=== PATIENT | female | born 1965 | race Caucasian/White ===

== ENCOUNTER 2017-10-18 09:30 | Day surgery (SDC) | payer OTHER ==
[~2017-10-18] VITALS: Ht 157.5 cm; Wt 84.2 kg
[2017-10-18] VITALS (12 sets, daily range): BP systolic 111–147; BP diastolic 63–83; PULSE 79–98; RESP 15–22; Ht 157.5 cm; Wt 84.2 kg
[2017-10-18] MEDS ORDERED: CEFAZOLIN 2 GM/50 ML (PMX) 50 ML IVPB ONE (10:30)
[2017-10-18 10:57] LABS: BASOPHILS % 0.4 % (0.0-2.0); EOSINOPHILS # 0.1 10^3/ul (0.0-0.5); EOSINOPHILS % 1.5 % (0.0-7.0); HEMATOCRIT 39.7 % (37.0-47.0); HEMOGLOBIN 13.7 g/dl (12.0-16.0); LYMPHOCYTES # 1.6 10^3/ul (0.8-2.9); LYMPHOCYTES % 33.9 % (15.0-51.0); MEAN CORPUSCULAR HEMOGLOBIN 30.5 pg (29.0-33.0); MEAN CORPUSCULAR HGB CONC 34.5 g/dl (32.0-37.0); MEAN CORPUSCULAR VOLUME 88.4 fl (82.0-101.0); MEAN PLATELET VOLUME 12.6 fl (7.4-10.4); MONOCYTE # 0.4 10^3/ul (0.3-0.9); MONOCYTES % 7.3 % (0.0-11.0); NEUTROPHIL # 2.7 10^3/ul (1.6-7.5); NEUTROPHILS % 56.5 % (39.0-77.0); PLATELET COUNT 179 10^3/UL (140-415); RED BLOOD COUNT 4.49 10^6/ul (4.20-5.40); RED CELL DISTRIBUTION WIDTH 12.7 % (11.5-14.5); WHITE BLOOD COUNT 4.8 10^3/ul (4.8-10.8)
[2017-10-18 11:15] LABS: ALBUMIN 3.7 g/dl (3.3-4.9); ALBUMIN/GLOBULIN RATIO 1.23; BILIRUBIN,INDIRECT 0.6 mg/dl (0-1.1); BILIRUBIN,TOTAL 0.6 mg/dl (0.2-1.3); CALCIUM 9.3 mg/dl (8.4-10.2); CREATININE 0.68 mg/dl (0.44-1.00); POTASSIUM 4.2 mmol/L (3.5-5.1); TOTAL PROTEIN 6.7 g/dl (6.1-8.1)
[2017-10-18] MEDS ORDERED: LIDOCAINE 1% (MPF) 30 ML INJ ONE (11:38)
[2017-10-18] MEDS ORDERED: TRIAMCINOLONE ACET 40 MG/ML INJ ONE (11:39)
[2017-10-18 11:40] LABS: INR 1.01; PROTIME 13.4 Sec (11.9-14.9)
[2017-10-18 11:41] LABS: PARTIAL THROMBOPLASTIN TIME 31.5 Sec (25.0-35.0)
[2017-10-18] MEDS ORDERED: PROPOFOL 20 ML ONE ×2 (12:22→13:16)
[2017-10-18] MEDS ORDERED: ROCURONIUM 50 MG INJ ONE (12:22)
[2017-10-18] MEDS ORDERED: FENTAnyl 50 MCG/ML VIAL ONE (12:22)
[2017-10-18] MEDS ORDERED: MIDAZOLAM 1 MG/ML 2 ML INJ ONE (12:22)
[2017-10-18] MEDS ORDERED: LIDOCAINE 2% (SDV) 5 ML INJ ONE (12:22)
[2017-10-18] MEDS ORDERED: CEFAZOLIN 1 GM INJ ONE (12:28)
[2017-10-18] MEDS ORDERED: ONDANSETRON 4 MG INJ ONE (12:30)
[2017-10-18] MEDS ORDERED: DEXAMETHASONE 4 MG/ML 1 ML INJ ONE (12:30)
[2017-10-18] MEDS ORDERED: EPHEDrine SULFATE 50 MG/5 ML SYG ONE (12:54)
[2017-10-18] MEDS ORDERED: SUGAMMADEX SODIUM 200 MG/2 ML VIAL IV ONE (13:29)
[2017-10-18] MEDS ORDERED: OXYCODONE/ACETAMINOPHEN (5/325) TAB PO PRN (14:00)
[2017-10-18] MEDS ORDERED: ONDANSETRON 4 MG INJ IV PRN (14:00)
[2017-10-18] MEDS ORDERED: HYDROmorphONE (0.2 MG/ML) 10ML SYG IV PRN ×2 (14:00)
[2017-10-18] MEDS ORDERED: FENTAnyl 50 MCG/ML VIAL IV PRN (14:00)
--- NOTE | 2017-10-18 14:04 | OPR ---
Date/Time of Note Date/Time of Note DATE: 10/18/17 TIME: 13:43 Operative Report Procedure Date: Oct 18, 2017 Preoperative Diagnosis right knee meniscus tear Postoperative Diagnosis right knee osteoarthritis and degenerative meniscus tear on medial side Operation/Procedure Performed RIght knee arthroscopy with partial meniscectomy Surgeon see signature line Care Navigator NOne Anesthesia Type: general Tourniquet Time: 40 minutes, thigh, 250mmhg Estimated Blood Loss: minimal Transfusion none Specimen None Grafts/Implants none Complications none Pt Condition Post Procedure: stable Disposition: PACU Indications 52 year old female with long standing right knee pain and mechanical symptoms as well as medial joint line tenderness. Despite nonop measures, she continued to have worsening pain and function. MRI showed right medial meniscus tears which was consistent with her signs and symptoms. Procedure Description Pre-op: The patient was examined and risks of surgery were discussed, including but not limited to nerve or vessel damage, infection, incomplete resolution of pain, dvt, pe, rsd, and worsening of arthritis in the knee. Given her continuing pain and poor function of the right knee, she elected to proceed with right knee arthroscopy. The patient signed the operative site then I signed the operative sight as well. The patient was then transferred to the operating room and onto the operating table and placed in supine position with all bony prominences padded. A tourniquet was placed ar the level of the right thigh. Procedure: The right lower extremity was prepped and draped in normal orthopedic sterile fashion. At this point a formal pre-surgical timeout checklist was performed. After completion of the check list the extremity was exsanguinated with an eschmark bandage and the tourniquet was inflated to 250 mhg. A standard anterolateral arthroscopy portal was started with a transverse incision at the level of the joint line. The joint was entered bluntly with a hemostat and then the camera trochar. The suprapatellar pouch was inspected as well as the trochlea which showed some disrpution of the femoral cartilage. There were some mild arthritic changes in this area as well as on the patella. The anteromedial portal was created at the level of the joint line using a needle for localization followed by a transverse incision, blunt entry to the joint and introduction of a probe. The diagnostic arthroscopy revealed medial compartment osteoarthritis on the femoral side of the joint. There was also degeneration of the medial meniscus from approximately midway back to the the posterior attachment. No areas of intrasubstance tears were found. The center margin of the meniscus was frayed and degenerative and was debrided with the shaver. The loose floating cartilage in the area was evacuated and the unstable cartilage on the medial aspect of the medial femoral condyle was debride to a stable area with the shaver. Inspection of the lateral side of the joint revealed minimal arthritic changes and no meniscus injuries. There was synovitis throughout the joint and this was reduced with the thermal arthroscopic instrument. The joint was briefly flushed with the camera and suction to remove any additional floating loose bodies. The portals were closed with nylon, 10cc of lidocaine 1% without epinephrine were injected to the portal sites and then dressed with 4x4s and abds followed by webril and an kin wrap. The patient was awakened from anesthesia and transferred safely to the cart and to the pacu. No complications to report Findings: 1. Osteoarthritis on the medial side of the medial femoral condyle 2. degenerative meniscus changes in the posterior medial meniscus. 3. synovitis throughout the knee. Post op plan: 1. WBAT with crutches for support 2. f/u in 2 weeks for suture removal 3. ROM of the knee. TED ALEJANDRE MD Oct 18, 2017 14:02
--- NOTE | 2017-10-18 14:08 | PDOCDIS ---
Discharge Instructions DIAGNOSIS Discharge Diagnosis Right knee meniscus tear CONDITION Patient Condition: Good HOME CARE INSTRUCTIONS: Diet Instructions: Regular ACTIVITY: Activity Restrictions: No Restrictions Bathing Restrictions: ShowerActivity Restrictions Comment: Remove bandage in 1 -2 days then shower normally. FOLLOW UP/APPOINTMENTS Follow-up Plan Make an appointment with the office to be seen in approximately 2 weeks to remove your stitches. SCHOOL/WORK RELEASE May return to School/Work with: No Restrictions TED ALEJANDRE MD Oct 18, 2017 14:08
== END 2017-10-18 16:12 | disposition home or self-care (01) ==
LOC: SDS 09:30
PROVIDERS: ATTEND Orthopaedic Surgery
DX: S83.241A Other tear of medial meniscus, current injury, right knee, initial encounter (principal); M17.11 Unilateral primary osteoarthritis, right knee; X58.XXXA Exposure to other specified factors, initial encounter; Y93.89 Activity, other specified; Y92.89 Other specified places as the place of occurrence of the external cause; Y99.8 Other external cause status
CPT/HCPCS: 29881; 80053; 84703; 85025; 85610; 85730; J0690; J1100; J2250; J2405; J3010; Z7512; Z7610

== ENCOUNTER → 2018-03-19 | Outpatient (CLI) | END | disposition home or self-care (01) ==